=== PATIENT | female | born 1965 | race Caucasian/White ===

== ENCOUNTER 2023-06-29 12:10 | Emergency (ER) | payer OTHER ==
[~2023-06-29] VITALS: Ht 154.9 cm; Wt 77.1 kg
[2023-06-29 12:59] VITALS: BP 126/79; PULSE 67; RESP 18; TEMP 98.1; O2SAT 97
[2023-06-29] MEDS ORDERED: NAPR-54 PO (14:25)
[2023-06-29] MEDS ORDERED: ROBAC PO (14:25)
[2023-06-29] MEDS ORDERED: BENZ-300 PO (14:26)
[2023-06-29 16:42] LABS: FLU A ANTIGEN negative (NEGATIVE); FLU B ANTIGEN NEGATIVE (NEGATIVE)
== END 2023-06-29 14:45 | disposition home or self-care (01) ==
LOC: MED 12:10
DX: B34.9 Viral infection, unspecified (principal); Z20.822 Contact with and (suspected) exposure to COVID-19
CPT/HCPCS: 99283

== ENCOUNTER 2023-09-10 10:36 | Emergency (ER) | payer OTHER ==
[~2023-09-10] VITALS: Ht 157.5 cm; Wt 77.1 kg
[~2023-09-10 10:36] MED LIST: BENZ-300 PO; NAPR-54 PO; ROBAC PO
[2023-09-10 11:00] VITALS: BP 105/77; PULSE 99; RESP 14; TEMP 98.8; O2SAT 96
[2023-09-10] MEDS ORDERED: ALBUTEROL 0.083% 2.5 MG/3 ML NEBU INH ONE ×3 (12:40→14:18)
[2023-09-10 14:09] VITALS: PULSE 80; RESP 24; O2SAT 98
[2023-09-10 14:10] LABS: FLU A ANTIGEN negative (NEGATIVE); FLU B ANTIGEN NEGATIVE (NEGATIVE)
[2023-09-10] MEDS ORDERED: BENZ-300 PO (14:30)
[2023-09-10] MEDS ORDERED: PROM118S5 PO (14:30)
[2023-09-10] MEDS ORDERED: ALBU0.0912 IH (14:30)
[2023-09-10] MEDS ORDERED: METH4TAB1 PO (14:30)
== END 2023-09-10 14:41 | disposition home or self-care (01) ==
LOC: MED 10:36
DX: J20.9 Acute bronchitis, unspecified (principal); Z20.822 Contact with and (suspected) exposure to COVID-19; Z79.899 Other long term (current) drug therapy
CPT/HCPCS: 71045; 87426; 87804; 94640; 99284; J7613

== ENCOUNTER 2024-01-11 17:14 | Emergency (ER) | payer OTHER ==
[~2024-01-11] VITALS: Ht 157.5 cm; Wt 77.1 kg
[~2024-01-11 17:14] MED LIST changes: +ALBU0.0912 IH; +METH4TAB1 PO; +PROM118S5 PO
[2024-01-11 17:24] VITALS: BP 122/70; PULSE 99; RESP 18; TEMP 98.1; O2SAT 95
[2024-01-11 18:55] LABS: FLU A ANTIGEN negative (NEGATIVE); FLU B ANTIGEN NEGATIVE (NEGATIVE)
[2024-01-11] MEDS ORDERED: IBUP-1842 PO (19:10)
[2024-01-11] MEDS ORDERED: ACET-10509 PO (19:10)
[2024-01-11] MEDS ORDERED: NIRM1TAB9 PO (19:10)
[2024-01-11] MEDS: ACETAMINOPHEN EXTRA STRENGTH 500 MG TAB PO ONE (19:18)
== END 2024-01-11 19:25 | disposition home or self-care (01) ==
LOC: MED 17:14
DX: U07.1 COVID-19 (principal); Z79.899 Other long term (current) drug therapy
CPT/HCPCS: 71046; 99284